=== PATIENT | male | born 1970 ===

== ENCOUNTER 2017-07-22 08:31 | Observation (INO) | payer OTHER, SELFPAY ==
[2017-07-22 10:10] LABS: BASO # 0.1 K/uL (0.0-0.2); EOS # 0.1 K/uL (0.0-0.7); EOS % 1.6 % (0.0-4.0); HEMOGLOBIN 15.7 g/dL (12.0-18.0); LYMPH # 3.2 K/uL (1.0-4.3); LYMPH % 50.7 % (20.0-40.0); MEAN CELL VOLUME 82.1 fL (80.0-94.0); MEAN CORPUSCULAR HEMOGLOBIN 27.4 pg (27.0-31.0); MEAN CORPUSCULAR HGB CONC 33.4 g/dL (33.0-37.0); MEAN PLATELET VOLUME 8.7 fL (7.2-11.7); MONO # 0.5 K/uL (0.0-0.8); MONO % 7.9 % (0.0-10.0); NEUT # 2.4 K/uL (1.8-7.0); NEUT % 38.8 % (50.0-75.0); NRBC % 0.3 % (0.0-2.0); RBC 5.73 Mil/uL (4.40-5.90); RED CELL DISTRIBUTION WIDTH 13.1 % (11.5-14.5); WHITE BLOOD COUNT 6.2 K/uL (4.8-10.8)
[2017-07-22 10:14] LABS: SQUAMOUS EPITHIAL < 1 /hpf (0-5); URINE BILIRUBIN NEGATIVE (NEGATIVE); URINE BLOOD NEGATIVE (NEGATIVE); URINE CLARITY Clear (Clear); URINE COLOR Yellow (YELLOW); URINE GLUCOSE (UA) 1+ mg/dL (Normal); URINE LEUKOCYTE ESTERASE NEG Leu/uL (Negative); URINE NITRATE NEGATIVE (NEGATIVE); URINE PROTEIN NEGATIVE (NEGATIVE); URINE UROBILINOGEN NORMAL mg/dL (0.2-1.0)
[2017-07-22 10:26] LABS: ALB/GLOB RATIO 1.3 (1.0-2.1); ALBUMIN 4.2 g/dL (3.5-5.0); ALT/SGPT 53 U/L (21-72); AST/SGOT 34 U/L (17-59); BLOOD UREA NITROGEN 14 mg/dL (9-20); CALCIUM 8.7 mg/dl (8.6-10.4); GFR AFRICAN-AMERICAN > 60; GFR NON-AFRICAN AMERICAN > 60; LIPASE 454 U/L (23-300)
[2017-07-22] MEDS ORDERED: Iohexol 350mg/ml 100 ML ONE (11:07)
--- NOTE | 2017-07-22 11:56 | CT ---
PROCEDURE: CT Abdomen and Pelvis with contrast HISTORY: pain COMPARISON: None available. TECHNIQUE: Contrast dose: 100 mL Omnipaque 350 Radiation dose: Total exam DLP = 1160.17 mGy-cm. This CT exam was performed using one or more of the following dose reduction techniques: Automated exposure control, adjustment of the mA and/or kV according to patient size, and/or use of iterative reconstruction technique. FINDINGS: LOWER THORAX: No visible consolidation, pleural effusion, or pneumothorax. LIVER: Unremarkable. GALLBLADDER AND BILE DUCTS: Unremarkable. PANCREAS: Unremarkable. SPLEEN: Unremarkable. ADRENALS: Unremarkable. KIDNEYS AND URETERS: The kidneys enhance symmetrically. No hydronephrosis or obstructing calculus identified. VASCULATURE: No aortic aneurysm. BOWEL: Stomach is nondistended. Lack of oral contrast limits evaluation for bowel pathology. Bowel loops appear within normal limits of caliber without evidence of obstruction. APPENDIX: The appendix appears within normal limits of caliber. No secondary signs of acute appendicitis. PERITONEUM: No significant free fluid. No definite free air. LYMPH NODES: No bulky adenopathy identified. BLADDER: Unremarkable. REPRODUCTIVE: Unremarkable. BONES: Degenerative changes. OTHER FINDINGS: Bilateral gynecomastia. 12 mm fat containing umbilical hernia. Small right greater than left fat containing inguinal hernias. IMPRESSION: No acute findings identified. Incidental findings as above.
[2017-07-22] MEDS ORDERED: Sodium Chloride 0.9% 1,000 ML IV ONE (12:13)
--- NOTE | 2017-07-22 12:17 | C.PDOC ---
History Of Present Illness 47 y/o male presents to ED with complaints of abdominal pain intermittently for "months". Pt notes that the last couple days it has become worse. Pain is worse when eating. Note that his umbilicus had some swelling for the last 4 months but recently the swelling increased as well has the pain. Patient reports daily bowel movement, last one today with soft stool. Pt saw Dr. Ward who instructed him come to ED for further evaluation. Patient denies fever, nausea, vomiting, CP , SOB or any other complaints at this time. Time Seen by Provider: 07/22/17 09:06 Chief Complaint (Nursing): Abdominal Pain History Per: Patient History/Exam Limitations: no limitations Onset/Duration Of Symptoms: Days Current Symptoms Are (Timing): Still Present Past Medical History Reviewed: Historical Data, Nursing Documentation, Vital Signs Vital Signs: Last Vital Signs Temp 97.7 F 07/22/17 17:40 Pulse 53 L 07/22/17 17:40 Resp 20 07/22/17 17:40 BP 107/68 07/22/17 17:40 Pulse Ox 96 07/22/17 17:40 - Medical History PMH: No Chronic Diseases Surgical History: No Surg Hx Family History: States: No Known Family Hx - Social History Hx Alcohol Use: No Hx Substance Use: No - Immunization History Hx Tetanus Toxoid Vaccination: No Hx Influenza Vaccination: No Hx Pneumococcal Vaccination: No Review Of Systems Constitutional: Negative for: Fever, Chills Gastrointestinal: Positive for: Abdominal Pain. Negative for: Nausea, Vomiting Musculoskeletal: Negative for: Back Pain Skin: Negative for: Rash Physical Exam - Physical Exam Appears: Non-toxic, No Acute Distress Skin: Warm, Dry, No Rash Head: Atraumatic, Normacephalic Eye(s): bilateral: Normal Inspection, EOMI Nose: Normal Oral Mucosa: Moist Neck: Normal ROM, Supple Chest: Symmetrical Cardiovascular: Rhythm Regular Respiratory: Normal Breath Sounds, No Accessory Muscle Use, No Rales, No Rhonchi , No Wheezing Gastrointestinal/Abdominal: Soft, Tenderness (diffuse), Distention, No Guarding , No Rebound, Hernia (Umbilical ) Back: No CVA Tenderness Extremity: Normal ROM, Capillary Refill (<2 seconds) Extremity: Bilateral: Atraumatic Neurological/Psych: Oriented x3 ED Course And Treatment - Laboratory Results Result Diagrams: 07/22/17 10:07/22/17 10:02 O2 Sat by Pulse Oximetry: 99 (RA) Pulse Ox Interpretation: Normal Progress Note: Pt refused pain medication. Discussed with Dr. Ward who is requesting patient to be admitted with surgical consult to Dr. Yanes. Consult with Dr. Yanes who will bring patient to OR tomorrow. Patient to be NPO after midnight Disposition - Disposition Disposition: HOSPITALIZED Disposition Time: 14:39 Condition: STABLE - Clinical Impression Clinical Impression: Abdominal pain, Umbilical hernia - PA / INCOME TAX EXPERT / Resident Statement MD/DO has reviewed & agrees with the documentation as recorded. - Scribe Statement The provider has reviewed the documentation as recorded by the Darwinibe Naomi Kaplan All medical record entries made by the Darwinibpaty were at my direction and personally dictated by me. I have reviewed the chart and agree that the record accurately reflects my personal performance of the history, physical exam, medical decision making, and the department course for this patient. I have also personally directed, reviewed, and agree with the discharge instructions and disposition.
[2017-07-22] MEDS ORDERED: Sodium Chloride 0.9% 1,000 ML ONE (12:24)
--- NOTE | 2017-07-22 15:40 | CP.PCM.CON ---
History of Present Illness - History of Present Illness History of Present Illness: General Surgery Consult HPI: 47M presented to ED with periumbilical/epigastric abd pain. Pain has been on and off for the last 4 months. In the past 2-3 days the pain has increased. Pain is worse with eating and pressing on it. He describes the pain as sharp, shooting pain, and currently rates it as 7/10. Pt denies similar incidence in the past. Denies N/V/D/C, fever, chills, SOB, CP. His last BM was this morning and normal. Pt was seen by primary doctor and sent to ED. PMH: Denies PSH: Denies SH: Denies tobacco, EtOH, and drug use; works in a kitchen Meds: Denies All: Denies Review of Systems - Review of Systems All systems: reviewed and no additional remarkable complaints except (as per HPI ) Past Patient History - Past Social History Smoking Status: Never Smoked - PSYCHIATRIC Hx Substance Use: No - SURGICAL HISTORY Hx Surgeries: No - ANESTHESIA Hx Anesthesia: No Hx Anesthesia Reactions: No Meds Allergies/Adverse Reactions: Allergies Allergy/AdvReac Type Severity Reaction Status Date / Time No Known Allergies Allergy Unverified 07/22/17 08:41 - Medications Medications: Current Medications Sodium Chloride (Sodium Chloride 0.9%) 1,000 mls @ 100 mls/hr IV .Q10H ONE Stop: 07/22/17 22:12 Last Admin: 07/22/17 12:27 Dose: 100 mls/hr Physical Exam - Constitutional Appears: Non-toxic, No Acute Distress - Head Exam Head Exam: ATRAUMATIC, NORMOCEPHALIC - Eye Exam Eye Exam: EOMI. absent: Scleral icterus - ENT Exam ENT Exam: Mucous Membranes Moist Additional comments: trachea midline - Respiratory Exam Respiratory Exam: NORMAL BREATHING PATTERN. absent: Respiratory Distress - Cardiovascular Exam Cardiovascular Exam: absent: Bradycardia, Tachycardia - GI/Abdominal Exam GI & Abdominal Exam: Guarding (mild), Hernia (umbilical), Soft, Tenderness ( periumbilical). absent: Distended, Firm, Rebound, Rigid - Rectal Exam Rectal Exam: Deferred - Exam Additional comments: B/L no palpable inguinal hernias - Extremities Exam Extremities exam: Positive for: pedal pulses present. Negative for: pedal edema - Neurological Exam Neurological exam: Alert, Oriented x3 - Psychiatric Exam Psychiatric exam: Normal Affect, Normal Mood - Skin Skin Exam: Dry, Warm Results - Vital Signs Recent Vital Signs: Last Vital Signs Temp 97.4 F L 07/22/17 12:29 Pulse 52 L 07/22/17 12:29 Resp 20 07/22/17 12:29 BP 103/67 07/22/17 12:29 Pulse Ox 99 07/22/17 14:35 - Labs Result Diagrams: 07/22/17 10:02 07/22/17 10:02 Labs: Laboratory Results - last 24 hr 07/22/17 07/22/17 07/22/17 10:02 10:02 10:02 WBC 6.2 RBC 5.73 Hgb 15.7 Hct 47.0 MCV 82.1 MCH 27.4 MCHC 33.4 RDW 13.1 Plt Count 239 MPV 8.7 Neut % (Auto) 38.8 L Lymph % (Auto) 50.7 H [place] % (Auto) 7.9 Eos % (Auto) 1.6 Baso % (Auto) 1.0 Neut # 2.4 Lymph # 3.2 [place] # 0.5 Eos # 0.1 Baso # 0.1 Sodium 138 Potassium 3.9 Chloride 102 Carbon Dioxide 28 Anion Gap 12 BUN 14 Creatinine 0.8 Est GFR ( Amer) > 60 Est GFR (Non-Af Amer) > 60 Random Glucose 148 H Calcium 8.7 Total Bilirubin 0.7 AST 34 ALT 53 Alkaline Phosphatase 61 Total Protein 7.5 Albumin 4.2 Globulin 3.3 Albumin/Globulin Ratio 1.3 Lipase 454 H Urine Color Yellow Urine Clarity Clear Urine pH 5.0 Ur Specific [place] 1.023 Urine Protein Negative Urine Glucose (UA) 1+ H Urine Ketones Negative Urine Blood Negative Urine Nitrate Negative Urine Bilirubin Negative Urine Urobilinogen Normal Ur Leukocyte Esterase Neg Urine WBC (Auto) < 1 Urine RBC (Auto) < 1 Ur Squamous Epith Cells < 1 - Imaging and Cardiology CT scan - abdomen Status: Image reviewed by me, Report reviewed by me Assessment & Plan - Assessment and Plan (Free Text) Assessment: 47M with incarcerated umbilical hernia Plan: OR tomorrow for umbilical hernia repair Pain medications PRN NPO past midnight IVF AM labs D/W Dr. Farzana Barrera PGY4 - Date & Time Date: 07/22/17 Time: 03:30
--- NOTE | 2017-07-22 16:29 | CP.PCM.HP ---
Past Patient History - Past Social History Smoking Status: Never Smoked - PSYCHIATRIC Hx Substance Use: No - SURGICAL HISTORY Hx Surgeries: No - ANESTHESIA Hx Anesthesia: No Hx Anesthesia Reactions: No Meds Allergies/Adverse Reactions: Allergies Allergy/AdvReac Type Severity Reaction Status Date / Time No Known Allergies Allergy Unverified 07/22/17 08:41 Physical Exam - Constitutional Appears: Well - Head Exam Head Exam: ATRAUMATIC, NORMAL INSPECTION, NORMOCEPHALIC - Eye Exam Eye Exam: EOMI, Normal appearance, PERRL Pupil Exam: NORMAL ACCOMODATION, PERRL - ENT Exam ENT Exam: Mucous Membranes Moist, Normal Exam - Neck Exam Neck exam: Positive for: Normal Inspection - Respiratory Exam Respiratory Exam: Decreased Breath Sounds - Cardiovascular Exam Cardiovascular Exam: REGULAR RHYTHM, +S1, +S2 - GI/Abdominal Exam GI & Abdominal Exam: Diminished Bowel Sounds, Soft - Rectal Exam Rectal Exam: Deferred Results - Vital Signs Recent Vital Signs: Last Vital Signs Temp 97.2 F L 07/22/17 16:21 Pulse 60 07/22/17 16:21 Resp 20 07/22/17 16:21 BP 120/84 07/22/17 16:21 Pulse Ox 99 07/22/17 16:21 - Labs Result Diagrams: 07/22/17 10:02 07/22/17 10:02 Labs: Laboratory Results - last 24 hr 07/22/17 07/22/17 07/22/17 10:02 10:02 10:02 WBC 6.2 RBC 5.73 Hgb 15.7 Hct 47.0 MCV 82.1 MCH 27.4 MCHC 33.4 RDW 13.1 Plt Count 239 MPV 8.7 Neut % (Auto) 38.8 L Lymph % (Auto) 50.7 H [place] % (Auto) 7.9 Eos % (Auto) 1.6 Baso % (Auto) 1.0 Neut # 2.4 Lymph # 3.2 [place] # 0.5 Eos # 0.1 Baso # 0.1 Sodium 138 Potassium 3.9 Chloride 102 Carbon Dioxide 28 Anion Gap 12 BUN 14 Creatinine 0.8 Est GFR ( Amer) > 60 Est GFR (Non-Af Amer) > 60 Random Glucose 148 H Calcium 8.7 Total Bilirubin 0.7 AST 34 ALT 53 Alkaline Phosphatase 61 Total Protein 7.5 Albumin 4.2 Globulin 3.3 Albumin/Globulin Ratio 1.3 Lipase 454 H Urine Color Yellow Urine Clarity Clear Urine pH 5.0 Ur Specific [place] 1.023 Urine Protein Negative Urine Glucose (UA) 1+ H Urine Ketones Negative Urine Blood Negative Urine Nitrate Negative Urine Bilirubin Negative Urine Urobilinogen Normal Ur Leukocyte Esterase Neg Urine WBC (Auto) < 1 Urine RBC (Auto) < 1 Ur Squamous Epith Cells < 1
[2017-07-22 20:01] LABS: INR 1.1; PROTHROMBIN TIME 11.9 SECONDS (9.7-12.2)
[2017-07-23] MEDS: Lidocaine 1%/Epinephrine 1:100000 30 ml vial IJ ONE ×2 (08:19→08:50)
[2017-07-23] MEDS ORDERED: Lactated Ringer's 1,000 ML IV ONE ×3 (08:20→10:02)
[2017-07-23] MEDS: Bupivacaine HCl 0.25% PF (10 ml) Inj ONE ×2 (08:20→08:50)
[2017-07-23] MEDS: ceFAZolin IV 2 gm in Dextrose 2 GM/50 ML BAG IVPB ONE ×2 (08:20→08:45)
[2017-07-23] MEDS ORDERED: Midazolam 2 MG/2 ML VIAL ONE (08:27)
[2017-07-23] MEDS ORDERED: Propofol 10 mg/ml Inj (20 ML) ONE ×2 (08:27→09:56)
[2017-07-23] MEDS ORDERED: Rocuronium 10 mg/ml (5 ml) ONE (08:29)
[2017-07-23] MEDS ORDERED: Succinylcholine Chloride 20 mg/ml Syr (5 ml) IV ONE (08:29)
[2017-07-23] MEDS ORDERED: Neostigmine Methylsulfate 3mg/3ml Syringe IV ONE (09:15)
[2017-07-23] MEDS ORDERED: Bupivacaine HCl 0.25% PF (10 ml) Inj ONE (09:36)
[2017-07-23] MEDS ORDERED: Lidocaine Hydrochloride 5 ML INJ ONE (09:55)
[2017-07-23] MEDS ORDERED: Morphine 4 MG/ML VIAL ONE (10:04)
--- NOTE | 2017-07-23 10:17 | PCM.SURG1 ---
Surgeon's Initial Post Op Note - Surgeon's Notes Surgeon: Dada Yanes MD Nutrition Services Associate: Jess Oquendo PGY-1 Type of Anesthesia: General Endo Pre-Operative Diagnosis: Incarcerated umbilical hernia Operative Findings: See op report Post-Operative Diagnosis: Incarcerated umbilical hernia Operation Performed: Laparoscopic umbilical hernia repair with mesh Specimen/Specimens Removed: None Estimated Blood Loss: EBL {In ML}: 10 Blood Products Given: N/A Drains Used: No Drains Post-Op Condition: Good Date of Surgery/Procedure: 07/23/17 Time of Surgery/Procedure: 10:17
--- NOTE | 2017-07-23 11:36 | OP ---
PROCEDURE DATE: 07/23/2017 PREOPERATIVE DIAGNOSES: 1. Incarcerated umbilical hernia. 2. Abdominal pain. POSTOPERATIVE DIAGNOSES: 1. Incarcerated umbilical hernia. 2. Abdominal pain. PROCEDURE DONE: 1. Laparoscopic incarcerated umbilical hernia repair with a mesh. 2. Bilateral transverse abdominis plane block placement. SURGEON: The procedure was done by Dada monzon MD. LIVESTOCK BREEDER: Dr. Melany Oquendo, PGY-2 resident. TYPE OF ANESTHESIA: General endotracheal tube anesthesia. ESTIMATED BLOOD LOSS: Around 10 mL. DRAIN: None. PATHOLOGY: The hernial sac and content were sent for the pathology. COMPLICATIONS: None. INTRAOPERATIVE FINDINGS: The patient had incarcerated omentum firmly attached to the umbilical hernia sac and content. DESCRIPTION OF PROCEDURE: On intraoperative steps, this is a 47-year-old male who was diagnosed with incarcerated umbilical hernia and the patient was consented for the laparoscopic umbilical hernia repair with a mesh. Brought to the OR, placed supine on the operating table. After induction of the anesthesia, abdomen was prepped and draped in the usual sterile fashion. The left upper quadrant 5-mm incision was made after incising the skin and subcutaneous tissue. The peritoneal cavity was entered using the Visiport technique. Another 5 mm port was placed in the left flank. Another 8 mm port was placed in the left lower quadrant and grasper and dissector were introduced. The incarcerated omentum was reduced back into the peritoneal cavity and hernial sac and content was dissected and it was sent off the table for the pathology. Now, the transfascial suture was placed after making skin incision on top of the hernial sac and the defect was closed and the 9 cm mesh was implanted. After proper implantation of the mesh, all the ports were taken out under vision, pneumo was deflated. Lap TAP block was given bilaterally 30 cc of Marcaine on left and right side of upper flank. Total 60 cc of Marcaine was given. The incision site was closed in 2 layers, subcu with a 2-0 Vicryl, skin with a 4-0 Monocryl and 2-0 Vicryl and 4-0 Monocryl at all port site and dry sterile dressing was applied. The patient tolerated the procedure well. Count of the instrument and gauze was correct. There was no apparent complication. Dada Yanes MD [facility]
--- NOTE | 2017-07-23 13:26 | CP.PCM.PCO ---
Physician Communication Note - Physician Communication Note Physician Communication Note: Ok for DC from a surgical standpoint.
[2017-07-23 14:46] VITALS: RESP 20
--- NOTE | 2017-07-23 16:08 | CARD ---
APPROVED REPORT EKG Measurement Heart [id number] <Conclusion> Sinus bradycardia Possible Septal infarct, age undetermined Abnormal ECG
[2017-07-23 16:10] VITALS: BP 102/66; PULSE 79; TEMP 98.5; O2SAT 95
[2017-07-23] MEDS ORDERED: Influenza Vaccine 60 mcg/0.5 mL SYR (4YR UP) IM ONE (18:05)
[2017-07-23] MEDS ORDERED: Pneumococcal 23-Valent Vaccine IM ONE (18:06)
[2017-07-24] MEDS ORDERED: Pneumococcal 23-Valent Vaccine IM ONE (10:00)
[2017-07-24] MEDS ORDERED: Influenza Vaccine 60 mcg/0.5 mL SYR (4YR UP) IM ONE (10:00)
== END 2017-07-23 18:45 | disposition home or self-care (01) ==
LOC: C.ER 08:31 → C.9E 12:14 → C.3T 16:08
PROVIDERS: ADMIT Internal Medicine Nephrology; ATTEND Internal Medicine Nephrology
DX: K42.0 Umbilical hernia with obstruction, without gangrene (principal); Z23 Encounter for immunization
CPT/HCPCS: 49653; 74177; 80053; 81001; 83690; 85025; 85610; 85730; 88302; 90471; 90472; 90674; 90732; 93005; 96374; 96375; 99285; C1781; G0378; J0690; J1170; J1885; J2001; J2250; J2270; J2405; J2704; J2710; J3010; J7040; J7120; Q9967